=== PATIENT | female | born 1990 | race Two or more races ===

== ENCOUNTER 2022-07-11 22:50 | Inpatient (IN) | payer OTHER ==
[~2022-07-11] VITALS: Ht 170.2 cm; Wt 79.8 kg
== END 2022-07-14 14:23 | disposition home or self-care (01) | DRG 807 ==
LOC: LDR 22:50 → OB/GYN 22:50 → LDR 23:54 → OB/GYN 07-12 09:23
PROVIDERS: ADMIT Obstetrics & Gynecology; ATTEND Obstetrics & Gynecology
PROC: 4A1HXCZ Monitoring of Products of Conception, Cardiac Rate, External Approach (ICD-10-PCS; 2022-07-11)
PROC: 10E0XZZ Delivery of Products of Conception, External Approach (ICD-10-PCS; principal; 2022-07-12)
PROC: 3E033VJ Introduction of Other Hormone into Peripheral Vein, Percutaneous Approach (ICD-10-PCS; 2022-07-12)
PROC: 3E0P7VZ Introduction of Hormone into Female Reproductive, Via Natural or Artificial Opening (ICD-10-PCS; 2022-07-12)
DX: O66.0 Obstructed labor due to shoulder dystocia (principal); Z37.0 Single live birth; Z3A.40 40 weeks gestation of pregnancy; Z20.822 Contact with and (suspected) exposure to COVID-19